=== PATIENT | male | born 1970 | race American Indian/Alaskan Native ===

== ENCOUNTER 2021-02-21 13:41 | Emergency (ER) | payer SELFPAY ==
[2021-02-21] MEDS ORDERED: SODIUM CHLORIDE 0.9% 1000 ML 1,000 ML IV ONE (14:04)
[2021-02-21] MEDS ORDERED: ONDANSETRON 4 MG/2 ML INJ IV ONE (14:04)
--- NOTE | 2021-02-21 14:39 | XRay Report ---
XR chest routine 2V INDICATION / CLINICAL INFORMATION: SOB, dizziness COMPARISON: None available. FINDINGS: SUPPORT DEVICES: None. HEART / MEDIASTINUM: No significant abnormality. LUNGS / PLEURA: Lungs are clear. Costophrenic sulci are sharp. No pneumothorax. ADDITIONAL FINDINGS: No significant additional findings. IMPRESSION: 1. No acute findings. Signer Name: Ian Sprague MD Signed: 02/21/2021 2:34 PM Workstation Name: [id number]
[2021-02-21 14:55] LABS: Hematocrit 40.2 % (35.5-45.6); Mean Corpuscular HGB Conc 32 % (32-34); Mean Corpuscular Volume 91 fl (84-94); Platelet Count 163 K/mm3 (140-440); Red Blood Count 4.44 M/mm3 (3.65-5.03); Red Cell Distribution Width 13.8 % (13.2-15.2)
[2021-02-21 15:02] LABS: Basophils % (Auto) 0.2 % (0.0-1.8); Eosinophils % (Auto) 0.5 % (0.0-4.3); Lymphocytes # (Auto) 0.4 K/mm3 (1.2-5.4); Lymphocytes % (Auto) 6.8 % (13.4-35.0); Monocytes # (Auto) 0.8 K/mm3 (0.0-0.8); Monocytes % (Auto) 13.2 % (0.0-7.3)
[2021-02-21 15:13] LABS: Alanine Aminotransferase 17 units/L (7-56); Albumin 4.3 g/dL (3.9-5); BUN/Creatinine Ratio 19; Blood Urea Nitrogen 21 mg/dL (9-20); Calcium 9.1 mg/dL (8.4-10.2); Hemolysis Index 7
--- NOTE | 2021-02-21 15:48 | Emergency Department Report ---
ED General Adult HPI - General Chief complaint: Weakness Stated complaint: DIZZINESS Time Seen by Provider: 02/21/21 13:57 Source: patient Mode of arrival: Wheelchair Limitations: No Limitations - History of Present Illness Initial comments: Patient is a 50-year-old male presents emergency with complaints of generalized weakness that began earlier today. Patient has associated lightheadedness, dizziness, nausea, 1 episode of vomiting. Patient states that he had not eaten anything and he was at work. He states he was experiencing some mild shortness of breath once he arrived in the emergency room. He denies any fever, cough, diarrhea, chest pain, leg swelling, calf pain, syncope, headache, vision changes, unilateral weakness, unilateral numbness, speech disturbance, gait disturbance. Past medical history of hypertension but states he has not taken his lisinopril in weeks. No allergies to medications. - Related Data Previous Rx's Medication Instructions Recorded Last Taken Type Ondansetron [Zofran Odt] 4 mg PO Q8HR PRN #10 tab.rapdis 02/21/21 Unknown Rx amLODIPine 5 mg PO DAILY #30 tab 02/21/21 Unknown Rx Allergies Allergy/AdvReac Type Severity Reaction Status Date / Time No Known Allergies Allergy Unverified 04/02/19 17:28 ED Review of Systems ROS: Stated complaint: DIZZINESS Other details as noted in HPI Comment: All other systems reviewed and negative ED Past Medical Hx - Past Medical History Previous Medical History?: Yes Hx Hypertension: Yes - Surgical History Additional Surgical History: Finger - Social History Smoking Status: Never Smoker Substance Use Type: Marijuana - Medications Home Medications: Home Medications Medication Instructions Recorded Confirmed Last Taken Type Ondansetron [Zofran Odt] 4 mg PO Q8HR PRN #10 tab.rapdis 02/21/21 Unknown Rx amLODIPine 5 mg PO DAILY #30 tab 02/21/21 Unknown Rx ED Physical Exam - General Limitations: No Limitations General appearance: alert, in no apparent distress - Head Head exam: Present: atraumatic, normocephalic - Eye Eye exam: Present: normal appearance - ENT ENT exam: Present: mucous membranes moist - Respiratory Respiratory exam: Present: normal lung sounds bilaterally. Absent: respiratory distress, wheezes, rales, rhonchi, stridor, chest wall tenderness, accessory muscle use, decreased breath sounds, prolonged expiratory - Cardiovascular Cardiovascular Exam: Present: regular rate, normal rhythm, normal heart sounds. Absent: systolic murmur, diastolic murmur, rubs, gallop - Neurological Exam Neurological exam: Present: alert, oriented X3 - Psychiatric Psychiatric exam: Present: normal affect, normal mood - Skin Skin exam: Present: warm, dry, intact ED Course Vital Signs 02/21/21 02/21/21 02/21/21 13:44 16:53 16:56 Temperature 99.4 F 101.1 F H Pulse Rate 69 77 Respiratory 18 16 Rate Blood Pressure 187/94 168/116 [Right] O2 Sat by Pulse 100 99 Oximetry ED Medical Decision Making - Lab Data Result diagrams: 02/21/21 14:23 02/21/21 14:23 Lab Results 02/21/21 02/21/21 02/21/21 Range/Units 14:23 14:23 Unknown WBC 5.8 (4.5-11.0) K/mm3 RBC 4.44 (3.65-5.03) M/mm3 Hgb 13.0 (11.8-15.2) gm/dl Hct 40.2 (35.5-45.6) % MCV 91 (84-94) fl MCH 29 (28-32) pg MCHC 32 (32-34) % RDW 13.8 (13.2-15.2) % Plt Count 163 (140-440) K/mm3 Lymph % (Auto) 6.8 L (13.4-35.0) % [place] % (Auto) 13.2 H (0.0-7.3) % Eos % (Auto) 0.5 (0.0-4.3) % Baso % (Auto) 0.2 (0.0-1.8) % Lymph # (Auto) 0.4 L (1.2-5.4) K/mm3 [place] # (Auto) 0.8 (0.0-0.8) K/mm3 Eos # (Auto) 0.0 (0.0-0.4) K/mm3 Baso # (Auto) 0.0 (0.0-0.1) K/mm3 Seg Neutrophils % 79.3 H (40.0-70.0) % Seg Neutrophils # 4.7 (1.8-7.7) K/mm3 Sodium 142 (137-145) mmol/L Potassium 4.2 (3.6-5.0) mmol/L Chloride 105.1 (98-107) mmol/L Carbon Dioxide 24 (22-30) mmol/L Anion Gap 17 mmol/L BUN 21 H (9-20) mg/dL Creatinine 1.1 (0.8-1.3) mg/dL Estimated GFR > 60 ml/min BUN/Creatinine Ratio 19 % Glucose 97 (75-100) mg/dL Calcium 9.1 (8.4-10.2) mg/dL Magnesium 1.80 (1.7-2.3) mg/dL Total Bilirubin 0.30 (0.1-1.2) mg/dL AST 18 (5-40) units/L ALT 17 (7-56) units/L Alkaline Phosphatase 75 (35-129) units/L Total Creatine Kinase 371 H (55-170) units/L Troponin T < 0.010 (0.00-0.029) ng/mL Total Protein 7.5 (6.3-8.2) g/dL Albumin 4.3 (3.9-5) g/dL Albumin/Globulin Ratio 1.3 % Urine Color Yellow (Yellow) Urine Turbidity Clear (Clear) Urine pH 9.0 H (5.0-7.0) Ur Specific [place] 1.017 (1.003-1.030) Urine Protein <15 mg/dl (Negative) mg/dL Urine Glucose (UA) Neg (Negative) mg/dL Urine Ketones Neg (Negative) mg/dL Urine Blood Neg (Negative) Urine Nitrite Neg (Negative) Urine Bilirubin Neg (Negative) Urine Urobilinogen 4.0 (<2.0) mg/dL Ur Leukocyte Esterase Neg (Negative) Urine WBC (Auto) < 1.0 (0.0-6.0) /HPF Urine RBC (Auto) < 1.0 (0.0-6.0) /HPF Urine Bacteria (Auto) 1+ (Negative) /HPF Urine Mucus Few /HPF - EKG Data EKG shows normal: sinus rhythm, QRS complexes Rate: normal - EKG Data 02/21/21 15:47 Left axis deviation Left atrial enlargement LVH No STEMI - Radiology Data Radiology results: report reviewed Ordering Physician: NISA MATTHEWS Date of Service: 02/21/21 Procedure(s): XR chest routine 2V Accession Number(s): [id number] cc: NISA MATTHEWS Fluoro Time In Minutes: XR chest routine 2V INDICATION / CLINICAL INFORMATION: SOB, dizziness COMPARISON: None available. FINDINGS: SUPPORT DEVICES: None. HEART / MEDIASTINUM: No significant abnormality. LUNGS / PLEURA: Lungs are clear. Costophrenic sulci are sharp. No pneumothor ax. ADDITIONAL FINDINGS: No significant additional findings. IMPRESSION: 1. No acute findings. Signer Name: Ian Sprague MD Signed: 02/21/2021 2:34 PM Workstation Name: [email or web address] Transcribed By: SANTOSH Dictated By: Ian Sprague MD Electronically Authenticated By: Ian Sprague MD Signed Date/Time: 02/21/211433 DD/ 33 TD/TT: - Medical Decision Making Patient is a 50-year-old male presents emergency with complaints of generalized weakness that began earlier today. Patient has associated lightheadedness, dizziness, nausea, 1 episode of vomiting. Patient states that he had not eaten anything and he was at work. He states he was experiencing some mild shortness of breath once he arrived in the emergency room. He denies any fever, cough, diarrhea, chest pain, leg swelling, calf pain, syncope, headache, vision changes, unilateral weakness, unilateral numbness, speech disturbance, gait disturbance. Past medical history of hypertension but states he has not taken his lisinopril in weeks. No allergies to medications. Vitals with elevated blood pressure, patient states that he has not been taking his blood pressure medication as he reports he does not like how it makes him feel. Labs and UA show evidence of mild dehydration, given 1 L normal saline, otherwise labs are stable. EKG shows left atrial enlargement LVH, no STEMI, no arrhythmia. Chest x-ray 1. No acute findings. Patient has low-grade temperature upon discharge, could be related to URI versus viral illness. Advised patient Please take medication as prescribed as needed. Increase your water intake. Follow-up with your primary care doctor for reexamination. Return to emergency room for any new or worsening symptoms. Recommend outpatient COVID-19 testing and if positive will need to self quarantine for 10 days from onset of symptoms. Please keep a blood pressure log and take this to the primary care doctor. Eat a low-sodium diet. Incorporate 30-60 minutes of daily exercise. Increase your water intake. Given that patient does not like his side effects from lisinopril, will change patient to amlodipine 5 mg daily Critical care attestation.: If time is entered above; I have spent that time in minutes in the direct care of this critically ill patient, excluding procedure time. ED Disposition Clinical Impression: Generalized weakness, Light-headed, Dehydration, Elevated blood pressure reading Nausea & vomiting Qualifiers: Vomiting type: unspecified Qualified Code(s): R11.2 - Nausea with vomiting, unspecified Disposition: HOME / SELF CARE / HOMELESS Is pt being admited?: No Does the pt Need Aspirin: No Condition: Stable Additional Instructions: Please take medication as prescribed as needed. Increase your water intake. Follow-up with your primary care doctor for reexamination. Return to emergency room for any new or worsening symptoms. Recommend outpatient COVID-19 testing and if positive will need to self quarantine for 10 days from onset of symptoms. Please keep a blood pressure log and take this to the primary care doctor. Eat a low-sodium diet. Incorporate 30-60 minutes of daily exercise. Increase your water intake. Prescriptions: amLODIPine 5 mg PO DAILY #30 tab Ondansetron [Zofran Odt] 4 mg PO Q8HR PRN #10 tab.rapdis PRN Reason: nausea/vomiting Referrals: PRIMARY CAREMD [Primary Care Provider] - 2-3 Days ENE WHITNEY MD [Staff Physician] - 2-3 Days [facility] [Provider Group] - 2-3 Days Forms: Accompanied Note, Work/School Release Form(ED) Time of Disposition: 16:42 Print Language: MAORI
[2021-02-21 16:31] LABS: Bacteria,Urine 1+ /HPF (Negative); Bilirubin,Urine NEG (Negative); Blood,Urine NEG (Negative); Color,Urine Yellow (Yellow); Mucus,Urine FEW /HPF; Protein,Urine <15 mg/dL mg/dL (Negative); RBC,Urine < 1.0 /HPF (0.0-6.0); WBC,Urine < 1.0 /HPF (0.0-6.0)
[2021-02-21 16:54] VITALS: BP 168/116
--- NOTE | 2021-02-22 12:51 | Electrocardiograph Report ---
[facility] Test Date: 2021-02-21 Test Time: 14:30:13 Pat Name: AICHA MCBRIDE Department: Room: Gender: M [employer] Technician: FAUSTO : 1970 Requested By: KYM VENTURA Order Number: [id number] Reading MD: Rob Cruz Measurements Intervals Terry Rate: 72 P: 52 TN: 194 QRS: -9 QRSD: 95 T: -56 QT: 364 QTc: 398 Interpretive Statements Sinus rhythm Probable left atrial enlargement LVH with secondary repolarization abnormality Anterior ST elevation, probably due to LVH No previous ECG available for comparison Electronically Signed On 02-22-2021 12:50:25 EST by Rob Cruz
== END 2021-02-21 17:04 | disposition home or self-care (01) ==
LOC: ED 13:41
DX: E86.0 Dehydration (principal); R11.2 Nausea with vomiting, unspecified; R03.0 Elevated blood-pressure reading, without diagnosis of hypertension; I10 Essential (primary) hypertension; F12.90 Cannabis use, unspecified, uncomplicated; Z79.899 Other long term (current) drug therapy
CPT/HCPCS: 36415; 71046; 80053; 81001; 82550; 83735; 84484; 85025; 93005; 96361; 96374; 99284; J2405; J7030; Q0162